=== PATIENT | male | born 1955 | race Caucasian/White ===

== ENCOUNTER 2024-07-21 17:34 | Inpatient (IN) | payer MEDICARE ==
[2024-07-21 17:56] VITALS: BMI 32.1
[2024-07-21] MEDS ORDERED: Ondansetron ODT 4 MG TAB PO PRN (18:04)
[2024-07-21] MEDS ORDERED: Senokot S 8.6-50 MG TAB PO PRN (18:04)
[2024-07-21] MEDS ORDERED: Ondansetron PF 4 MG/2 ML Vial IVP PRN (18:04)
[2024-07-21] MEDS ORDERED: Acetaminophen 650 MG Suppository PR PRN (18:04)
[2024-07-21] MEDS ORDERED: Bisacodyl 5 MG TAB PO PRN (18:04)
[2024-07-21] MEDS ORDERED: Acetaminophen 325 MG TAB PO PRN (18:04)
[2024-07-21 18:55] LABS: Troponin I Less than 0.010 ng/mL (< 0.028)
[2024-07-21] MEDS: Pantoprazole 40 MG DR.TAB PO SCH (20:58)
[2024-07-21] MEDS: Metoprolol Tartrate 50 MG TAB PO SCH (20:59)
[2024-07-21] MEDS: Ezetimibe 10 MG TAB PO SCH (20:59)
[2024-07-21] MEDS: Lidocaine 2% Viscous Solution 10 ML, Aluminum & Magnesium Hydroxide 30 ML SSW SCH (20:59)
[2024-07-21] MEDS ORDERED: Famotidine 20 MG TAB PO SCH (21:00)
[2024-07-21] MEDS ORDERED: Famotidine/PF 20 mg/2ml Vial SLOW IVP SCH (21:00)
[2024-07-21] MEDS: Nitroglycerin 2% Ointment 1 INCH/1 GM Packet TOP SCH ×2 (21:00→21:03)
[2024-07-21] MEDS: Nitroglycerin 0.4 MG TAB (25 Tab Bottle) SL PRN (23:09)
[2024-07-21 23:35] LABS: Troponin I Less than 0.010 ng/mL (< 0.028)
[2024-07-22 05:13] LABS: #Basophils 0.06 10x3/uL (0.0-0.2); %Basophils 0.8 % (0.0-1.0); %Eosinophils 2.1 % (0.0-10.0); %Monocytes 10.9 % (0.0-10.0); %Neutrophils 55.7 % (42.0-75.0); Hematocrit 40.3 % (42.0-52.0); Hemoglobin 14.4 g/dL (14.0-18.0); Mean Corpuscular HGB CONC 35.7 g/dL (32.0-36.0); Mean Corpuscular Hemoglobin 31.9 pg (27.0-31.0); Mean Corpuscular Volume 89.4 fL (78.0-98.0); Mean Platelet Volume 9.2 fL (7.4-10.4); Platelet Count 234 10x3/uL (130-400); RBC Distribution Width 12.4 % (11.5-14.5); Red Blood Cell (RBC) Count 4.51 mill/uL (4.70-6.10)
[2024-07-22 05:33] LABS: Anion Gap 14 mmol/L (10-20); BUN (Urea Nitrogen) 15 mg/dL (8.4-25.7); Calc. Creatinine Clearance 98 mL/min (70-130); Calcium 9.2 mg/dL (7.8-10.44); Carbon Dioxide 26 mmol/L (23-31); Cardiac Risk 6.9 (Less than 4.5); Chloride 102 mmol/L (98-107); Cholesterol 187 mg/dl (< 200 Desired); Estimated GFR 76; Glucose 105 mg/dL (80-115); HDL Cholesterol 27 mg/dL (>60 Neg Risk); LDL Cholesterol, Calculated 107 mg/dL; Potassium 3.6 mmol/L (3.5-5.1); Sodium 138 mmol/L (136-145); Triglycerides 265 mg/dL (Less than 150)
[2024-07-22] MEDS: Clopidogrel Bisulfate 75 MG TAB PO SCH (09:17)
[2024-07-22] MEDS: Aspirin Chewable 81 MG TAB PO SCH (09:17)
[2024-07-22] MEDS: Hydrochlorothiazide 25 MG TAB PO SCH (09:17)
[2024-07-22] MEDS: Allopurinol 100 MG TAB PO SCH (09:17)
[2024-07-22] MEDS: Pantoprazole 40 MG DR.TAB PO SCH (09:18)
[2024-07-22] MEDS ORDERED: Iopamidol 370 76% 100 ML VIAL ONE (10:45)
[2024-07-22 11:11] LABS: Hemoglobin A1c 5.9 % (4.0-6.0)
[2024-07-22] MEDS ORDERED: Communication Order-Pharmacy FS SCH (13:15)
[2024-07-22] MEDS ORDERED: Sodium Chloride 0.9% 1,000 ML IV SCH (13:15)
[2024-07-22] MEDS ORDERED: EPINEPHrine 1 MG/10 ML Abboject SYRINGE ONE (13:24)
[2024-07-22] MEDS ORDERED: Heparin 10,000 UNITS/ 10 ML VIAL ONE (13:24)
[2024-07-22] MEDS ORDERED: Atropine Sulfate 1 mg/10 ml Syringe ONE (13:24)
[2024-07-22] MEDS ORDERED: PHENYLEPHRINE-NS 100 MCG/ML 10 ML SYRINGE ONE (13:25)
[2024-07-22] MEDS ORDERED: fentaNYL 50 mcg/mL 1 mL Vial ONE (15:18)
[2024-07-22] MEDS ORDERED: Midazolam HCl 2 mg/2 ml Vial ONE (15:18)
[2024-07-22] MEDS: Sodium Chloride 0.9% 500 ML IV SCH (17:27)
[2024-07-23 05:10] LABS: Anion Gap 14 mmol/L (10-20); BUN (Urea Nitrogen) 17 mg/dL (8.4-25.7); Calc. Creatinine Clearance 86 mL/min (70-130); Calcium 8.6 mg/dL (7.8-10.44); Carbon Dioxide 24 mmol/L (23-31); Chloride 103 mmol/L (98-107); Estimated GFR 65; Glucose 115 mg/dL (80-115); Potassium 3.6 mmol/L (3.5-5.1); Sodium 137 mmol/L (136-145)
[2024-07-23] MEDS: Isosorbide Mononitrate 30 MG ER.TAB PO SCH (08:04)
[2024-07-23] MEDS: FLU (Fluad Triv) TS24-25 (65UP)/MF59C/PF 45 MCG/0.5 ML Syringe IM ONE (08:06)
[2024-07-23 11:31] VITALS: BP 112/67; TEMP 98.3
== END 2024-07-23 12:49 | disposition home or self-care (01) | DRG 287 ==
LOC: OBS 17:34 → OBSVTOIN 07-22 13:53
PROVIDERS: ADMIT Family Medicine; ATTEND Family Medicine
PROC: 4A023N7 Measurement of Cardiac Sampling and Pressure, Left Heart, Percutaneous Approach (ICD-10-PCS; principal; 2024-07-22)
PROC: B2151ZZ Fluoroscopy of Left Heart using Low Osmolar Contrast (ICD-10-PCS; 2024-07-22)
PROC: B2131ZZ Fluoroscopy of Multiple Coronary Artery Bypass Grafts using Low Osmolar Contrast (ICD-10-PCS; 2024-07-22)
PROC: B2181ZZ Fluoroscopy of Left Internal Mammary Bypass Graft using Low Osmolar Contrast (ICD-10-PCS; 2024-07-22)
DX: I25.110 Atherosclerotic heart disease of native coronary artery with unstable angina pectoris (principal); I10 Essential (primary) hypertension; M10.9 Gout, unspecified; F10.90 Alcohol use, unspecified, uncomplicated; Z82.49 Family history of ischemic heart disease and other diseases of the circulatory system; Z95.1 Presence of aortocoronary bypass graft; Z79.02 Long term (current) use of antithrombotics/antiplatelets; Z79.82 Long term (current) use of aspirin; Z79.899 Other long term (current) drug therapy
CPT/HCPCS: 36415; 71045; 80048; 80053; 80061; 83036; 83880; 84443; 84484; 85025; 85610; 85730; 93005; 93010; 93459; 94760; 99152; C1769; C1887; G0378; J0171; J0461; J1644; J2250; J3010; J7030